=== PATIENT | male | born 1995 | race Caucasian/White ===

== ENCOUNTER 2018-05-19 17:23 | Emergency (ER) | payer MEDICAID, OTHER ==
[~2018-05-19] VITALS: Ht 167.6 cm; Wt 81.0 kg
[2018-05-19 18:34] VITALS: BP 130/80
== END 2018-05-19 18:38 | disposition home or self-care (01) ==
LOC: ER 17:23
DX: J02.9 Acute pharyngitis, unspecified (principal); H92.02 Otalgia, left ear
CPT/HCPCS: 87070; 87430; 99284

== ENCOUNTER 2022-08-20 18:35 | Emergency (ER) | payer SELFPAY ==
[~2022-08-20] VITALS: Ht 182.9 cm; Wt 75.0 kg
[2022-08-20] MEDS ORDERED: IBUPROFEN 600MG TABLET PO ONE (19:15)
[2022-08-20 20:16] LABS: CLARITY URINE CLEAR (CLEAR); COLOR URINE YELLOW (YELLOW); KETONES URINE NEGATIVE (NEGATIVE); LEUKOCYTE ESTERASE URINE NEGATIVE (NEGATIVE); NITRITE URINE NEGATIVE (NEGATIVE); OCCULT BLOOD URINE NEGATIVE (NEGATIVE); PH URINE 7.5 (4.5-8.0); PROTEIN URINE NEGATIVE (NEGATIVE); SPECIFIC GRAVITY URINE 1.018 (1.005-1.030); UROBILINOGEN URINE 0.2 E.U./dL (0.2-1.0)
[2022-08-20 21:10] VITALS: BP 142/84
[2022-08-20] MEDS ORDERED: IBUP-2029 MT (21:11)
== END 2022-08-20 21:10 | disposition home or self-care (01) ==
LOC: ER 18:35
DX: N50.811 Right testicular pain (principal)
CPT/HCPCS: 76870; 81003; 93976; 99284